=== PATIENT | female | born 1960 | race African-American/Black ===

== ENCOUNTER 2017-09-11 11:16 | Emergency (ER) | payer MEDICAID, OTHER ==
[~2017-09-11] VITALS: Ht 162.6 cm; Wt 90.0 kg
[2017-09-11 11:21] VITALS: BP 147/94
[2017-09-11] MEDS ORDERED: PHEN100C4 PO (11:25)
[2017-09-11] MEDS ORDERED: PHENYTOIN SODIUM EXTENDED 100MG CAPSULE PO ONE (12:00)
[2017-09-11] MEDS ORDERED: TOPIRAMATE 100MG TABLET PO SCH (12:15)
== END 2017-09-11 13:10 | disposition home or self-care (01) ==
LOC: ER 11:17
DX: G40.909 Epilepsy, unspecified, not intractable, without status epilepticus (principal); E11.9 Type 2 diabetes mellitus without complications
CPT/HCPCS: 99283; Z7610

== ENCOUNTER 2018-11-27 09:47 | Emergency (ER) | payer BC ==
[~2018-11-27] VITALS: Ht 167.6 cm; Wt 125.0 kg
[~2018-11-27 09:47] MED LIST: PHEN100C4 PO
[2018-11-27] MEDS ORDERED: SODIUM CHLORIDE 0.9% 1,000 ML IV ONE (11:03)
[2018-11-27] MEDS ORDERED: ACETAMINOPHEN 325MG TABLET PO ONE (13:45)
[2018-11-27 14:08] LABS: CHLORIDE 113 mEq/L (98-107)
[2018-11-27 15:00] VITALS: BP 128/86
[2018-11-27 15:39] LABS: CLARITY URINE CLEAR (CLEAR); COLOR URINE YELLOW (YELLOW); KETONES URINE NEGATIVE (NEGATIVE); LEUKOCYTE ESTERASE URINE NEGATIVE (NEGATIVE); NITRITE URINE NEGATIVE (NEGATIVE); OCCULT BLOOD URINE NEGATIVE (NEGATIVE); PROTEIN URINE NEGATIVE (NEGATIVE); SPECIFIC GRAVITY URINE 1.007 (1.005-1.030); UROBILINOGEN URINE 0.2 E.U./dL (0.2-1.0)
== END 2018-11-27 15:00 | disposition home or self-care (01) ==
LOC: ER 10:01
DX: G40.909 Epilepsy, unspecified, not intractable, without status epilepticus (principal); E11.9 Type 2 diabetes mellitus without complications
CPT/HCPCS: 36415; 80053; 80185; 81003; 99283; J7030